=== PATIENT | female | born 1960 | race Asian ===

== ENCOUNTER 2022-10-01 07:49 | Day surgery (SDC) | payer OTHER ==
[2022-10-01] MEDS ORDERED: Lactated Ringers 1,000 ML IV SCH (08:00)
[2022-10-01] MEDS ORDERED: Sodium Chloride 0.9% 10 ML Syringe FLUSH PRN (08:00)
[2022-10-01] MEDS ORDERED: Propofol 200 MG/20 ML SDV ONE ×2 (08:38→09:02)
[2022-10-01] MEDS ORDERED: Midazolam 1 MG/ML 2 ML SDV ONE (08:38)
== END 2022-10-01 11:03 | disposition home or self-care (01) ==
LOC: LL.SDS 07:49
PROVIDERS: ATTEND Surgery
DX: Z12.31 Encounter for screening mammogram for malignant neoplasm of breast (principal); I10 Essential (primary) hypertension; E78.5 Hyperlipidemia, unspecified; Z90.710 Acquired absence of both cervix and uterus; Z79.899 Other long term (current) drug therapy; Z91.013 Allergy to seafood
CPT/HCPCS: J2250; J2704; J7120

== ENCOUNTER 2024-08-30 17:08 | Emergency (ER) | payer OTHER ==
[2024-08-30 17:22] LABS: BASOPHILS ABSOLUTE AUTO 0.08 K/uL (0.00-0.20); BASOPHILS PERCENT AUTO 0.6 % (0.0-2.0); EOSINOPHILS ABSOLUTE AUTO 0.38 K/uL (0.00-0.50); EOSINOPHILS PERCENT AUTO 2.9 % (0.0-5.0); HEMATOCRIT 42.6 % (34.0-46.0); HEMOGLOBIN 14.4 g/dL (11.7-15.5); IMMATURE GRAN ABSOLUTE AUTO 0.09 10^3/uL (0.00-0.04); IMMATURE GRAN PERCENT AUTO 0.7 % (0.0-0.4); LYMPHOCYTES ABSOLUTE AUTO 5.78 K/uL (0.50-3.50); LYMPHOCYTES PERCENT AUTO 44.4 % (10.0-50.0); MEAN CORPUSCULAR HEMOGLOBIN 30.8 pg (28.2-33.3); MEAN CORPUSCULAR HGB CONC 33.8 g/dL (31.7-36.0); MEAN CORPUSCULAR VOLUME 91.2 fL (84.0-98.0); MONOCYTES ABSOLUTE AUTO 0.92 K/uL (0.00-1.00); MONOCYTES PERCENT AUTO 7.1 % (2.0-14.0); NEUTROPHILS ABSOLUTE AUTO 5.77 K/uL (1.40-7.00); NEUTROPHILS PERCENT AUTO 44.3 % (45.0-80.0); PLATELET COUNT,PLT 320 K/uL (150-350); RED BLOOD CELL COUNT 4.67 M/uL (3.77-5.09); RED CELL DISTRIBUTION WIDTH 12.2 % (11.2-14.1)
[2024-08-30 17:44] LABS: ALANINE AMINOTRANSFERASE,ALT 46 U/L (12-78); ALBUMIN 4.3 g/dL (3.4-5.0); ALKALINE PHOSPHATASE 88 IU/L (46-116); ASPARTATE AMNIOTRANSFERASE,AST 29 U/L (15-37); BILIRUBIN TOTAL 0.4 mg/dL (0.2-1.0); BLOOD UREA NITROGEN,BUN 16 mg/dL (7-18); CALCIUM 8.8 mg/dL (8.5-10.1); CARBON DIOXIDE,CO2 16.7 mmol/L (21.0-32.0); CHLORIDE,CL 100 mmol/L (98-107); CREATININE 1.13 mg/dL (0.51-1.17); EST CRCL DRUG DOSING (CG) 38.45 mL/min; GLUCOSE RANDOM 202 mg/dL (70-99); MAGNESIUM 2.3 mg/dL (1.8-2.4); POTASSIUM,K 3.7 mmol/L (3.5-5.1); PROTEIN TOTAL,TP 8.2 g/dL (6.4-8.2); SODIUM,NA 139 mmol/L (136-145)
[2024-08-30 17:45] LABS: ESTIMATED GFR 55 mL/min (>=60)
[2024-08-30] MEDS: Sodium Chloride 0.9% 1,000 ML IV ONE ×2 (18:07→19:08)
[2024-08-30] MEDS: Sodium Chloride 0.9% 10 ML Syringe FLUSH PRN (18:10)
[2024-08-30] MEDS: levETIRAcetam 500 MG/5 ML SDV IVPUSH ONE (18:59)
[2024-08-30] MEDS: Dexamethasone 10 MG/ML SDV IVPUSH ONE (19:05)
[2024-08-30 21:24] LABS: APPEARANCE,URINE SLIGHTLY CLOUDY; BILIRUBIN,URINE NEGATIVE (NEGATIVE); COLOR,URINE YELLOW; GLUCOSE,URINE NEGATIVE (NEGATIVE); KETONES,URINE NEGATIVE (NEGATIVE); LEUKOCYTE ESTERASE,URINE NEGATIVE (NEGATIVE); NITRITE,URINE NEGATIVE (NEGATIVE); OCCULT BLOOD,URINE NEGATIVE (NEGATIVE); PH,URINE 5.5 (5.0-9.0); PROTEIN,URINE NEGATIVE (NEGATIVE); UROBILINOGEN,URINE 0.2 E.U./dL (0.2-1.0)
[2024-08-31] MEDS: Dexamethasone 10 MG/ML SDV IVPUSH SCH (01:55)
[2024-08-31 07:15] LABS: BASOPHILS ABSOLUTE AUTO 0.01 K/uL (0.00-0.20); BASOPHILS PERCENT AUTO 0.1 % (0.0-2.0); EOSINOPHILS ABSOLUTE AUTO 0.01 K/uL (0.00-0.50); EOSINOPHILS PERCENT AUTO 0.1 % (0.0-5.0); HEMOGLOBIN 13.6 g/dL (11.7-15.5); IMMATURE GRAN ABSOLUTE AUTO 0.03 10^3/uL (0.00-0.04); IMMATURE GRAN PERCENT AUTO 0.2 % (0.0-0.4); LYMPHOCYTES ABSOLUTE AUTO 1.53 K/uL (0.50-3.50); LYMPHOCYTES PERCENT AUTO 11.9 % (10.0-50.0); MEAN CORPUSCULAR HEMOGLOBIN 30.4 pg (28.2-33.3); MEAN CORPUSCULAR VOLUME 89.3 fL (84.0-98.0); MONOCYTES ABSOLUTE AUTO 0.09 K/uL (0.00-1.00); MONOCYTES PERCENT AUTO 0.7 % (2.0-14.0); NEUTROPHILS ABSOLUTE AUTO 11.17 K/uL (1.40-7.00); PLATELET COUNT,PLT 290 K/uL (150-350); RED BLOOD CELL COUNT 4.48 M/uL (3.77-5.09); RED CELL DISTRIBUTION WIDTH 12.2 % (11.2-14.1); WHITE BLOOD CELL COUNT,WBC 12.8 K/uL (4.0-10.2)
[2024-08-31] MEDS: levETIRAcetam 500 MG Tab PO SCH (07:47)
[2024-08-31] MEDS: levETIRAcetam 250 MG Tab PO SCH (07:47)
[2024-08-31 07:56] LABS: ANION GAP 12.8 meq/L (7-15); CALCIUM 8.9 mg/dL (8.5-10.1); CARBON DIOXIDE,CO2 23.2 mmol/L (21.0-32.0); CREATININE 0.72 mg/dL (0.51-1.17); EST CRCL DRUG DOSING (CG) 60.35 mL/min
== END 2024-08-31 11:45 | disposition home or self-care (01) ==
LOC: LL.ED 17:08 → SUPCPDRO 17:08 → LL.ED 08-31 11:45
DX: R56.9 Unspecified convulsions (principal); G93.9 Disorder of brain, unspecified; I10 Essential (primary) hypertension; Z90.710 Acquired absence of both cervix and uterus; Z91.018 Allergy to other foods; Z91.013 Allergy to seafood; Z79.899 Other long term (current) drug therapy
CPT/HCPCS: 36415; 70450; 71046; 80048; 80053; 81003; 83605; 83735; 84484; 85025; 85379; 87428; 93005; 93010; 96361; 96374; 96375; 96376; 99284; 99285; A9270; J1100; J1953; J7030